=== PATIENT | female | born 2000 | race American Indian/Alaskan Native ===

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

== ENCOUNTER 2019-02-23 07:33 | Day surgery (SDC) | payer MEDICAID ==
[2019-02-23] MEDS ORDERED: LACTATED RINGERS 1,000 ML ONE (08:09)
--- NOTE | 2019-02-23 08:49 | Short Stay Summary ---
Short Stay Documentation Date of service: 02/23/19 Narrative H&P: Pt is a 18yo BF EDC 07/29/19; EGA 17 5/7 weeks presents for a Cervical cerclage due to Incompetent cervix. She had a previous successful cerclage due to a history of previous miscarriage @ 18 weeks. She denies abdominal pains, vaginal bleeding or ROM. - History Principal diagnosis: IUP @ 17 weeks; Incompetent cervix H&P: obtained from office Past Medical History: No medical history Past Surgical History: Other (Cervical cerclage) Social history: no significant social history, single - Allergies and Medications Current Medications: Allergies peanut Allergy (Severe, Verified 07/23/18 21:30) Anaphylaxis Home Medications Medication Instructions Recorded Confirmed Last Taken Type Pnv No.95/Ferrous Fum/Folic AC 1 tab PO QDAY 04/28/18 08/04/18 08/04/18 History [ Vitamins Tablet] Ferrous Sulfate [Feosol 325 MG tab] 325 mg PO BID #60 tablet 08/11/18 Unknown Rx Ibuprofen [Motrin 600 MG tab] 600 mg PO Q6HR #30 tablet 08/11/18 Unknown Rx Vit-Fe Fumar-FA [ 1 each PO QDAY #30 tablet 08/11/18 Unknown Rx Vitamin] - Physical exam General appearance: no acute distress Integumentary: no rash HEENT: Atraumatic Lungs: Clear to auscultation Breasts: deferred Heart: Regular rate Gastrointestinal: normal Female Genitourinary: deferred Rectal Exam: deferred Extremities: no ischemia, No edema Neurological: Normal gait, Normal speech - Brief post op/procedure progress note Date of procedure: 02/23/19 Pre-op diagnosis: IUP @ 17 5/7 weeks; Incompetent cervix Post-op diagnosis: same Procedure: Cervical cerclage placement Anesthesia: spinal Findings: An 18 weeks size uterus. Cervix appears thick and closed. Satisfactory placement of cerclage using Ethibond suture. Surgeon: MADIE BRITO Estimated blood loss: minimal Pathology: none Condition: stable - Hospital course Hospital course: Unremarkable. - Disposition Condition at discharge: Good Disposition: DC-01 TO HOME OR SELFCARE - Discharge Diagnoses (1) 17 weeks gestation of Status: Chronic (2) Incompetent cervix during second trimester, antepartum Status: Resolved Short Stay Discharge Plan Activity: no restrictions, other (Nothing per vagina x 2 weeks) Diet: regular Follow up with: MADIE BRITO MD [Primary Care Provider] - 14 Days Prescriptions: Ampicillin 500 mg PO Q6H #28 capsule Acetaminophen/Codeine [Tylenol /Codeine # 3 tab] 1 tab PO Q6H PRN #30 tab PRN Reason: Pain, Moderate (4-6)
[2019-02-23] MEDS: LACTATED RINGERS 1,000 ML IV SCH ×2 (09:00→09:20)
[2019-02-23] MEDS ORDERED: ANCEF/STERILE WATER 2 GM/20 ML 2 GM/20 ML SYRINGE IV NR (09:00)
[2019-02-23 09:20] LABS: Hematocrit 36.2 % (30.3-42.9); Mean Corpuscular HGB Conc 33 % (30-34); Mean Corpuscular Volume 83 fl (79-97); Platelet Count 143 K/mm3 (140-440); Red Blood Count 4.38 M/mm3 (3.65-5.03); Red Cell Distribution Width 15.4 % (13.2-15.2)
[2019-02-23] MEDS ORDERED: DEXMEDETOMIDINE IV ONE (10:17)
[2019-02-23] MEDS ORDERED: NEO SYNEPHRINE ONE (10:17)
[2019-02-23] MEDS ORDERED: WATER FOR IRRIG STERILE IR ONE (10:20)
--- NOTE | 2019-02-23 11:02 | Anesthesia Consultation ---
Anesthesia Consult and Med Hx Date of service: 02/23/19 - Airway Anesthetic Teeth Evaluation: Good ROM Head & Neck: Adequate Mental/Hyoid Distance: Adequate Mallampati Class: Class II Intubation Access Assessment: Probably Good - Pulmonary Exam CTA: Yes - Cardiac Exam Cardiac Exam: RRR - Pre-Operative Health Status ASA Pre-Surgery Classification: ASA2 Proposed Anesthetic Plan: Spinal - Pulmonary Hx Smoking: No Hx Asthma: No COPD: No Hx Pneumonia: No - Cardiovascular System Hx Hypertension: No - Central Nervous System Hx Seizures: No Hx Psychiatric Problems: No - Endocrine Hx Renal Disease: No Hx End Stage Renal Disease: No Hx Hypothyroidism: No Hx Hyperthyroidism: No - Hematic Hx Anemia: No Hx Sickle Cell Disease: No - Other Systems Hx Alcohol Use: No
--- NOTE | 2019-02-23 11:02 | Anesthesia Day of Surgery ---
Anesthesia Day of Surgery - Day of Surgery Patient Examined: Yes Patient H&P Reviewed: Yes Patient is NPO: Yes
--- NOTE | 2019-02-23 11:03 | Post Anesthesia Evaluation ---
- Post Anesthesia Evaluation Patient Participated: Yes Airway Patent: Yes Stable Respiratory Function: Yes Nausea/Vomiting: No Temp > 96.8F: Yes Pain Manageable: Yes Adequeate Hydration: Yes Anesthesia Complications: No Block Receding Appropriately: Yes
--- NOTE | 2019-02-23 11:43 | Operative Report ---
Operative Report Operative Report: Date of procedure: 02/23/2019 Pre-operative diagnosis: 1. Intrauterine is 17-5/7 weeks 2. Incomp etent cervix Post-operative diagnosis: Same Procedure name(s): Cervical cerclage placement Surgeon: Markel Pastor M.D. Clearing House Clerk: None Anesthesia: Herberth Panchal CRNA EBL: Minimal Findings: An 18 week size uterus of heart tones 147. Cervix appeared thick and closed Procedure: After the patient was correctly identified, she was prepped and draped in usual sterile fashion and placed in dorsolithotomy position. First the bladder was emptied using a straight catheter, and the speculum was placed in the vaginal vault. The anterior lip of the cervix was grasped using ring forceps, and the cerclage was performed using the Ethibond sutures starting at the 12:00 to 10 o'clock position, the 9:00 to the 7 o'clock position, the 6:00 to the 4 o'clock position, and the 3:00 to the 12 o'clock position. The suture was tied at the 12 o'clock position. There was no evidence of ruptured membranes. At this point the procedure was considered complete. All instruments are removed from the vagina. The patient tolerated the procedure well and was transferred to recovery in stable condition.
[2019-02-23 11:54] VITALS: BP 133/57
== END 2019-02-23 14:00 | disposition home or self-care (01) ==
LOC: LDOR 07:33 → LD 07:36 → LDOR 14:00
PROVIDERS: ATTEND Obstetrics & Gynecology
DX: O34.32 Maternal care for cervical incompetence, second trimester (principal); Z3A.17 17 weeks gestation of pregnancy; Z79.899 Other long term (current) drug therapy; Z91.010 Allergy to peanuts; Z87.891 Personal history of nicotine dependence
CPT/HCPCS: 36415; 59320; 85027; 86850; 86900; 86901; J0690; J2370; J3490; J7120

== ENCOUNTER 2019-06-22 06:25 | Outpatient (CLI) | payer MEDICAID | END 2019-06-22 09:43 | disposition home or self-care (01) | LOC: TRG 06:25 → LAB 06:25 → TRG 08:45 | PROVIDERS: ATTEND Obstetrics & Gynecology | DX: O26.893 Other specified pregnancy related conditions, third trimester (principal); O99.513 Diseases of the respiratory system complicating pregnancy, third trimester; J45.909 Unspecified asthma, uncomplicated; Z3A.34 34 weeks gestation of pregnancy; Z67.11 Type A blood, Rh negative | CPT/HCPCS: 86850; 86900; 86901; 96372; J2790 ==

== ENCOUNTER 2019-07-03 06:05 | Day surgery (SDC) | payer MEDICAID ==
[2019-07-03] MEDS ORDERED: LACTATED RINGERS 1,000 ML ONE (07:30)
[2019-07-03] MEDS ORDERED: PROPOFOL 200 MG/20 ML VIAL IV ONE ×2 (07:38→07:56)
--- NOTE | 2019-07-03 07:40 | Short Stay Summary ---
Short Stay Documentation Date of service: 07/03/19 Narrative H&P: Pt is a 19yo BF EDC 07/31/19; EGA 36 0/7 weeks presents for a Cervical cerclage removal due to Incompetent cervix. She had a previous successful cerclage due to a history of previous miscarriage @ 18 weeks. She complains of irregular contractions, but denies vaginal bleeding or ROM. - History Principal diagnosis: Cervical cerclage removal H&P: obtained from office Past Medical History: No medical history Past Surgical History: Other (cervical cerclage x 2) Social history: no significant social history, single - Allergies and Medications Current Medications: Allergies peanut Allergy (Severe, Verified 07/23/18 21:30) Anaphylaxis Home Medications Medication Instructions Recorded Confirmed Last Taken Type Pnv No.95/Ferrous Fum/Folic AC 1 tab PO QDAY 04/28/18 08/04/18 08/04/18 History [ Vitamins Tablet] Ferrous Sulfate [Feosol 325 MG tab] 325 mg PO BID #60 tablet 08/11/18 Unknown Rx Ibuprofen [Motrin 600 MG tab] 600 mg PO Q6HR #30 tablet 08/11/18 Unknown Rx Vit-Fe Fumar-FA [ 1 each PO QDAY #30 tablet 08/11/18 Unknown Rx Vitamin] Acetaminophen/Codeine [Tylenol 1 tab PO Q6H PRN #30 tab 02/23/19 Unknown Rx /Codeine # 3 tab] Ampicillin 500 mg PO Q6H #28 capsule 02/23/19 Unknown Rx - Physical exam General appearance: no acute distress Integumentary: no rash HEENT: Atraumatic Lungs: Clear to auscultation Breasts: deferred Heart: Regular rate Gastrointestinal: normal Female Genitourinary: deferred Rectal Exam: deferred Extremities: no ischemia, No edema Neurological: Normal gait, Normal speech - Brief post op/procedure progress note Date of procedure: 07/03/19 Pre-op diagnosis: 1. IUP @ 36 0/7 weeks 2. Incompetent cervix with cervical cerclage Post-op diagnosis: same Procedure: Cervical cerclage removal Anesthesia: MAC Findings: Cervical cerclage removed intact without difficulty. Cx 3/80/V/-2 post-removal Surgeon: MADIE BRITO Estimated blood loss: none Pathology: none Condition: stable - Hospital course Hospital course: Unremarkable. Pt tolerated the cerclage removal without complications. She was observed for 3 hours and had only mild occasional contractions without significant cervical change. She will therefore be discharged to home with plans to follow up in the office in 1 week. - Disposition Condition at discharge: Good Disposition: DC-01 TO HOME OR SELFCARE - Discharge Diagnoses (1) 36 weeks gestation of Status: Acute (2) Incompetent cervix Status: Acute Short Stay Discharge Plan Activity: no restrictions Diet: regular Additional Instructions: Return to L&D if labor ensues. Follow up with: MADIE BRITO MD [Primary Care Provider] - 7 Days
--- NOTE | 2019-07-03 07:41 | Anesthesia Consultation ---
Anesthesia Consult and Med Hx Date of service: 07/03/19 - Airway Anesthetic Teeth Evaluation: Good ROM Head & Neck: Adequate Mental/Hyoid Distance: Adequate Mallampati Class: Class II Intubation Access Assessment: Probably Good - Pulmonary Exam CTA: Yes - Cardiac Exam Cardiac Exam: RRR - Pre-Operative Health Status ASA Pre-Surgery Classification: ASA2 Proposed Anesthetic Plan: IV Sedation - Pulmonary Hx Smoking: No Hx Asthma: Yes COPD: No Hx Pneumonia: No - Cardiovascular System Hx Hypertension: No - Central Nervous System Hx Seizures: No Hx Psychiatric Problems: No - Endocrine Hx Renal Disease: No Hx End Stage Renal Disease: No Hx Hypothyroidism: No Hx Hyperthyroidism: No - Hematic Hx Anemia: No Hx Sickle Cell Disease: No - Other Systems Hx Alcohol Use: No
--- NOTE | 2019-07-03 07:42 | Anesthesia Day of Surgery ---
Anesthesia Day of Surgery - Day of Surgery Patient Examined: Yes Patient H&P Reviewed: Yes Patient is NPO: Yes
--- NOTE | 2019-07-03 08:08 | Post Anesthesia Evaluation ---
- Post Anesthesia Evaluation Patient Participated: Yes Airway Patent: Yes Stable Respiratory Function: Yes Nausea/Vomiting: No Temp > 96.8F: Yes Pain Manageable: Yes Adequeate Hydration: Yes Anesthesia Complications: No
[2019-07-03 11:13] VITALS: BP 120/73
== END 2019-07-03 11:59 | disposition home or self-care (01) ==
LOC: LDOR 06:05 → APU 06:05 → TRG 06:08 → LD 10:06 → LDOR 11:59
PROVIDERS: ATTEND Obstetrics & Gynecology
DX: O34.33 Maternal care for cervical incompetence, third trimester (principal); Z79.899 Other long term (current) drug therapy; Z88.8 Allergy status to other drugs, medicaments and biological substances; J45.909 Unspecified asthma, uncomplicated; Z98.890 Other specified postprocedural states
CPT/HCPCS: 59871; J2704; J7120

== ENCOUNTER 2019-07-12 01:09 | Inpatient (IN) | payer MEDICAID ==
[2019-07-12] MEDS ORDERED: fentaNYL 100 MCG/2 ML INJ IV PRN (02:04)
[2019-07-12] MEDS ORDERED: AMPICILLIN/NS 2 GM/100 ML 2 GM/100 ML BAG IV ONE (02:04)
[2019-07-12] MEDS ORDERED: MINERAL OIL 30 ML ORAL LIQD PO PRN (02:04)
[2019-07-12] MEDS ORDERED: LIDOCAINE (2%) 20 MG/1 ML VIAL 20 ML MDV INFILTRATI ONE (02:04)
[2019-07-12] MEDS ORDERED: ePHEDrine SULFATE 50 MG/1 ML INJ IV PRN ×2 (02:04→07:30)
--- NOTE | 2019-07-12 02:13 | History and Physical Report ---
History of Present Illness Date of examination: 07/12/19 Date of admission: 07/12/2019 Chief complaint: 19 year old G History of present illness: 19 year old presents to L&D with contractions. Patient denies vaginal bleeding or leaking of fluid. She reports active movement. Patient states she receives care at [facility]; no records are available. Patient states her EDC is 07/31/2019. Patient states she has not had any complications with this and only takes vitamins. Had a cerclage which was removed last week. She denies drug allergies. She states she previously had a 31 5/7 week vaginal ; she states she also had a first trimester miscarriage in the past. 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 denies: smoking, alcohol abuse, prescription drug abuse, IV drug use - Obstetrical History Expected Date of Delivery: 07/31/19 Actual Gestation: 37 Week(s) 2 Day(s) : 3 Para: 1 Hx # Term Pregnancies: 0 Number of Pregnancies: 1 Spontaneous Abortions: 1 Induced : 0 Number of Living Children: 1 Medications and Allergies Allergies Allergy/AdvReac Type Severity Reaction Status Date / Time peanut Allergy Severe Anaphylaxis Verified 07/23/18 21:30 Home Medications Medication Instructions Recorded Confirmed Last Taken Type Pnv No.95/Ferrous Fum/Folic AC 1 tab PO QDAY 04/28/18 08/04/18 08/04/18 History [ Vitamins Tablet] Ferrous Sulfate [Feosol 325 MG tab] 325 mg PO BID #60 tablet 08/11/18 Unknown Rx Ibuprofen [Motrin 600 MG tab] 600 mg PO Q6HR #30 tablet 08/11/18 Unknown Rx Vit-Fe Fumar-FA [ 1 each PO QDAY #30 tablet 08/11/18 Unknown Rx Vitamin] Acetaminophen/Codeine [Tylenol 1 tab PO Q6H PRN #30 tab 02/23/19 Unknown Rx /Codeine # 3 tab] Ampicillin 500 mg PO Q6H #28 capsule 02/23/19 Unknown Rx Active Meds: Active Medications Ephedrine Sulfate (Ephedrine Sulfate) 10 mg IV Q2M PRN PRN Reason: Hypotension Fentanyl (Sublimaze) 100 mcg IV Q2H PRN PRN Reason: Labor Pain Oxytocin/Sodium Chloride (Pitocin/Ns 20 Unit/1000ml Drip) 20 units in 1,000 mls @ 125 mls/hr IV DIRECT FELICE Lactated Ringer's (Lactated Ringers) 1,000 mls @ 125 mls/hr IV DIRECT FELICE Ampicillin Sodium (Ampicillin/Ns 2 Gm/100 Ml) 2 gm in 100 mls @ 100 mls/hr IV ONCE ONE; Protocol Stop: 07/12/19 03:03 Ampicillin Sodium (Ampicillin/Ns 1 Gm/50 Ml) 1 gm in 50 mls @ 100 mls/hr IV Q4HR FELICE; Protocol Mineral Oil (Mineral Oil) 30 ml PO QHS PRN PRN Reason: Constipation Review of Systems All systems: negative (contractions) - Vital Signs Vital signs: Vital Signs Resp 18 07/12/19 01:25 Temp Pulse Resp BP Pulse Ox 90 18 132/76 07/12/19 01:26 07/12/19 01:25 07/12/19 01:26 - Physical Exam Abdomen: Positive: normal appearance, soft. Negative: distention, tenderness, guarding, rigidity Genitourinary (Female): Positive: normal external genitalia, normal perenium. Negative: perineal/vulvar lesions (no lesions seen on careful exam with bright light upon admission) Vagina: Positive: normal moisture Uterus: Positive: enlarged (S=D) Anus/Rectum: Positive: normal perianal skin Extremities: Positive: normal - Obstetrical FHR: category 1 Uterine Contraction Monitor Mode: External Cervical Dilatation: 6 Cervical Effacement Percentage: 90 (BBOW) station: -1 Uterine Contraction Pattern: Regular Uterine Contraction Intensity: Moderate Results All other labs normal. Assessment and Plan A: at 37 2/7 weeks gestation. Active labor. GBS unknown. No records available. P: Admit. Continuous EFM. GBS prophylaxis. Obtain records. labs drawn upon admission. Anticipate vaginal .
[2019-07-12] MEDS ORDERED: LACTATED RINGERS 1,000 ML IV SCH (03:00)
[2019-07-12] MEDS ORDERED: OXYTOCIN 20 UNIT/1000ML DRIP 20 UNITS/1,000 ML BAG IV SCH (03:00)
[2019-07-12 03:20] LABS: Hematocrit 36.3 % (30.3-42.9); Hemoglobin 12.2 gm/dl (10.1-14.3); Mean Corpuscular HGB Conc 34 % (30-34); Mean Corpuscular Volume 85 fl (79-97); Platelet Count 132 K/mm3 (140-440); Red Blood Count 4.29 M/mm3 (3.65-5.03); Red Cell Distribution Width 13.5 % (13.2-15.2)
[2019-07-12 03:46] LABS: Hepatitis C Virus Antibody Non-Reactive (NonReactive)
[2019-07-12] MEDS ORDERED: DEXMEDETOMIDINE 200 MCG/2 ML VIAL IV ONE ×2 (04:17→07:17)
--- NOTE | 2019-07-12 04:55 | Event Note ---
Date: 07/12/19 SVE .
[2019-07-12] MEDS ORDERED: AMPICILLIN/NS 1 GM/50 ML 1 GM/50 ML BAG IV SCH (06:09)
--- NOTE | 2019-07-12 07:03 | Anesthesia Consultation ---
Anesthesia Consult and Med Hx Date of service: 07/12/19 - Airway Anesthetic Teeth Evaluation: Good ROM Head & Neck: Adequate Mental/Hyoid Distance: Adequate Mallampati Class: Class II Intubation Access Assessment: Good - Pulmonary Exam CTA: Yes - Cardiac Exam Cardiac Exam: RRR - Pre-Operative Health Status ASA Pre-Surgery Classification: ASA2, Emergency Proposed Anesthetic Plan: Epidural - Pulmonary Hx Smoking: No Hx Asthma: Yes COPD: No Hx Pneumonia: No - Cardiovascular System Hx Hypertension: No - Central Nervous System Hx Seizures: No Hx Psychiatric Problems: No - Endocrine Hx Renal Disease: No Hx End Stage Renal Disease: No Hx Hypothyroidism: No Hx Hyperthyroidism: No - Hematic Hx Anemia: No Hx Sickle Cell Disease: No - Other Systems Hx Alcohol Use: No
[2019-07-12] MEDS ORDERED: NALOXONE 2 MG/2 ML INJ IV PRN (07:30)
[2019-07-12] MEDS ORDERED: BUPIVACAINE/PF (0.25%) 2.5 MG/ML 10 ML VIAL INFILTRATI ONE (07:40)
[2019-07-12] MEDS ORDERED: fentaNYL-BUPIV 2 MCG/ML-0.125% 200 MCG/100 ML BAG EPIDURAL SCH (08:00)
[2019-07-12] MEDS ORDERED: MAGNESIUM HYDROXIDE (MOM) ORAL LIQD UDC PO PRN (10:21)
[2019-07-12] MEDS ORDERED: LANOLIN/ZINC/DIMETHICONE (LANSINOH) 7 GM TP PRN (10:21)
[2019-07-12] MEDS ORDERED: WITCH HAZEL/ GLYCERIN PAD TP PRN (10:21)
--- NOTE | 2019-07-12 10:27 | Procedure Note ---
OB Delivery Note - Delivery Date of Delivery: 07/12/19 Surgeon: RAQUEL BENITEZ Estimated blood loss: 200cc - Vaginal Delivery presentation: vertex Delivery position: OA Delivery induction: none Delivery augmentation: rupture of membranes Delivery monitor: external FHT, external uterine Route of delivery: Delivery placenta: spontaneous Delivery cord: 3 umbilical vessels Episiotomy: none Delivery laceration: none Anesthesia: epidural Delivery comments: Spontaneous vaginal delivery at 09:12 of liveborn male weighing 6 lb. over intact perineum with apgars of 8/9. Baby placed skin to skin with mom immediately after delivery. Spontaneous cry and respirations. Baby dried with warm towels and suctioned with bulb syringe. 3 vessel cord double clamped and cut. Spontaneous delivery of intact placenta and membranes at 09:20 by vaughn mechanism. EBL 200 cc. Pitocin to IV fluids after delivery of placenta. Fundus firm and midline. No lacerations noted. Vaginal sweep negative. Sponge count correct. Mother and baby stable.
[2019-07-12] MEDS: IBUPROFEN 600 MG TAB PO SCH ×2 (13:02→20:31)
[2019-07-12] MEDS: HYDROcodone/ACETAMINOPHEN 5-325 MG TAB PO PRN ×2 (15:20→22:59)
[2019-07-12 21:25] LABS: Hematocrit 33.8 % (30.3-42.9); Hemoglobin 11.1 gm/dl (10.1-14.3)
[2019-07-13] MEDS: IBUPROFEN 600 MG TAB PO SCH ×3 (06:58→14:06)
[2019-07-13] MEDS: HYDROcodone/ACETAMINOPHEN 5-325 MG TAB PO PRN ×2 (10:36→21:20)
--- NOTE | 2019-07-13 11:57 | Discharge Summary ---
Providers - Providers Date of Admission: 07/12/19 02:28 Date of discharge: 07/14/19 Attending physician: MADIE BRITO Primary care physician: MADIE BRITO Hospitalization Reason for admission: active labor, IUP at term Delivery: Episiotomy: none Laceration: none Other procedures: none complications: none Discharge diagnosis: IUP at term delivered [place] baby: male Hospital course: Unremarkable. Condition at discharge: Good Disposition: DC-01 TO HOME OR SELFCARE - Discharge Diagnoses (1) (normal spontaneous vaginal delivery) Status: Resolved Plan - Discharge Medications Prescriptions: Ferrous Sulfate [Feosol 325 MG tab] 325 mg PO BID #60 tablet Ibuprofen [Motrin 600 MG tab] 600 mg PO Q6H #30 tablet Vit-Fe Fumar-FA [ Vitamin] 1 each PO QDAY #30 tablet - Provider Discharge Summary Activity: routine, no sex for 6 weeks, no heavy lifting 4 weeks, no strenuous exercise Diet: routine Instructions: routine Additional instructions: [] Smoking cessation referral if applicable(refer to patient education folder for contact #) [] Refer to [facility] Booklet Call your doctor immediately for: * Fever > 100.5 * Heavy vaginal bleeding ( >1 pad per hour) * Severe persistent headache * Shortness of breath * Reddened, hot, painful area to leg or breast * Drainage or odor from incision. * Keep incision clean and dry at all times and follow doctor's instructions regarding bathing/showering - Follow up plan Follow up: MADIE BRITO MD [Primary Care Provider] - 6 Weeks
--- NOTE | 2019-07-13 11:57 | Progress Note ---
Assessment and Plan - Patient Problems (1) (normal spontaneous vaginal delivery) Onset Date: 07/13/19 Current Visit: No Status: Resolved Plan to address problem: A: S/P - PPD #1 Doing well Asymptomatic anemia - stable P: May go home tomorrow. Subjective - Subjective Date of service: 07/13/19 Principal diagnosis: s/p - PPD #1 Interval history: Pt is feeling well without complaints. Bleeding improved. Patient reports: appetite normal, voiding normally, pain well controlled, flatus, ambulating normally, no dizzy ambulation, no nauseated [place]: doing well, nursing well, bottle feeding Objective - Vital Signs Latest vital signs: Vital Signs Temp Pulse Resp BP BP Pulse Ox 07/13/19 08:16 98.2 F 60 18 106/54 07/13/19 00:00 98.6 F 66 18 112/74 07/12/19 19:30 98.7 F 66 18 115/68 07/12/19 17:17 97.7 F 72 19 94/53 99 Intake and Output 07/12/19 07/13/19 07/13/19 22:59 06:59 14:59 Intake Total 300 480 Balance 300 480 Intake: Oral 480 Intake, Free Water 300 Other: Total, Intake Amount 480 # Voids Void 1 1 - Exam Breasts: Present: deferred Abdomen: Present: normal appearance, soft Uterus: Present: normal, firm, fundal height below umbilicus Extremities: Present: normal - Labs Labs: Laboratory Tests 07/12/19 07/12/19 07/12/19 02:00 02:00 02:00 WBC 9.6 RBC 4.29 Hgb 12.2 Hct 36.3 MCV 85 MCH 28 MCHC 34 RDW 13.5 Plt Count 132 L Hemoglobin A1c Syphilis IgG Antibody Non-reactive Hep Bs Antigen Hepatitis C Antibody Non-reactive HIV 1&2 Antibody Rapid HIV P24 Antigen Rubella IgG Antibody Immune Blood Type A NEGATIVE Antibody Screen Positive Antibody Identification Anti-D (Passively Aquired) 07/12/19 07/12/19 07/12/19 02:00 02:00 02:41 WBC RBC Hgb Hct MCV MCH MCHC RDW Plt Count Hemoglobin A1c 4.7 Syphilis IgG Antibody Hep Bs Antigen Non-reactive Hepatitis C Antibody HIV 1&2 Antibody Rapid Non react HIV P24 Antigen Non react Rubella IgG Antibody Blood Type Antibody Screen Antibody Identification 07/12/19 21:11 WBC RBC Hgb 11.1 Hct 33.8 MCV MCH MCHC RDW Plt Count Hemoglobin A1c Syphilis IgG Antibody Hep Bs Antigen Hepatitis C Antibody HIV 1&2 Antibody Rapid HIV P24 Antigen Rubella IgG Antibody Blood Type Antibody Screen Antibody Identification
[2019-07-14] MEDS: IBUPROFEN 600 MG TAB PO SCH ×2 (05:13→09:21)
[2019-07-14] MEDS: HYDROcodone/ACETAMINOPHEN 5-325 MG TAB PO PRN ×2 (06:23→14:10)
[2019-07-14 17:06] VITALS: BP 118/74
== END 2019-07-14 16:20 | disposition home or self-care (01) | DRG 775 ==
LOC: TRG 01:09 → LD 02:28 → OB 12:08
PROVIDERS: ADMIT Obstetrics & Gynecology; ATTEND Obstetrics & Gynecology
PROC: 10E0XZZ Delivery of Products of Conception, External Approach (ICD-10-PCS; principal; 2019-07-12)
PROC: 3E0R3BZ Introduction of Anesthetic Agent into Spinal Canal, Percutaneous Approach (ICD-10-PCS; 2019-07-12)
PROC: 00HU33Z Insertion of Infusion Device into Spinal Canal, Percutaneous Approach (ICD-10-PCS; 2019-07-12)
DX: O99.52 Diseases of the respiratory system complicating childbirth (principal); O99.02 Anemia complicating childbirth; J45.909 Unspecified asthma, uncomplicated; Z3A.37 37 weeks gestation of pregnancy; Z37.0 Single live birth; Z91.010 Allergy to peanuts; Z79.899 Other long term (current) drug therapy
CPT/HCPCS: 36415; 83036; 85014; 85018; 85027; 86592; 86706; 86762; 86803; 86850; 86870; 86900; 86901; 87806; G0378; A6250; J0290; J2590; J3010; J3490; J7120